=== PATIENT | female | born 1965 | race Caucasian/White ===

== ENCOUNTER 2018-12-28 18:01 | Emergency (ER) | payer BC, OTHER ==
[~2018-12-28] VITALS: Ht 170.2 cm; Wt 79.4 kg
[2018-12-28 18:16] VITALS: BP_SYST 120
--- NOTE | 2018-12-28 20:04 | NUR ---
Patient to ER bed CEDE[facility]O to gon for evaluation. Side rails up. Report given to HA GALLOWAY.
--- NOTE | 2018-12-28 20:18 | NUR ---
Pt AAOx4 c/o sharp intermittent R jaw pain radiating to R ear to posterior neck x 2 days increases with palpation. Pt also c/o nausea, vomiting x 2 yesterday. Took 2 ibuprofens today with mild relief. Pt reports she was dx with bronchitis and sinus infection x 2 weeks ago. No other injuries/complaints per pt/noted. Will continue to monitor.
--- NOTE | 2018-12-28 20:42 | NUR ---
CARLO gutiérrez at bedside examining patient.
[2018-12-28 20:57] VITALS: BP_SYST 129
--- NOTE | 2018-12-28 20:57 | NUR ---
Patient given written and verbal discharge instructions and verbalizes understanding. ER MD Ro discussed with patient the results and treatment provided. Patient in stable condition. ID arm band removed. Rx of Prednisone given. Patient educated on pain management and to follow up with PMD. Pain Scale 0. Opportunity for questions provided and answered. Medication side effect fact sheet provided.
== END 2018-12-28 20:57 | disposition home or self-care (01) ==
LOC: SED 18:01
DX: S16.1XXA Strain of muscle, fascia and tendon at neck level, initial encounter (principal); R59.9 Enlarged lymph nodes, unspecified; Z88.8 Allergy status to other drugs, medicaments and biological substances; Z91.018 Allergy to other foods; X58.XXXA Exposure to other specified factors, initial encounter; Y93.89 Activity, other specified; Y92.89 Other specified places as the place of occurrence of the external cause; Y99.8 Other external cause status
CPT/HCPCS: 99283